=== PATIENT | female | born 1995 ===

== ENCOUNTER 2016-11-17 11:22 | Emergency (ER) | payer OTHER, MEDICAID ==
[~2016-11-17 11:22] MED LIST: COLACE-DPS100 MG PO; MOTRIN-DPS800 MG PO; NIPPLECREAM TP; TYLENOL #3 DPS1 TAB PO
--- NOTE | 2016-11-21 08:25 | ER ---
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 She was carrying a very heavy tray and felt her back pull and since then has become more sore. It has been going on for the last 3 days. On physical exam, she has pain in her lower lumbar spine, but she is able to get in and out of sitting position without any difficulty. DIAGNOSIS: Lower lumbar strain. I wrote a prescription for Flexeril. She was given Toradol in the ER. She should follow up with her primary in the next week if not feeling better. Please see my T-sheet. MELCHOR Morrow / Refugio Phan MD / susanl JOB #: [id number] CC: Refugio Phan MD, Attending Physician Dennis Ng MD, Family Physician
== END 2016-11-17 12:00 | disposition home or self-care (01) ==
LOC: ER 11:22
DX: S39.012A Strain of muscle, fascia and tendon of lower back, initial encounter (principal); X50.0XXA Overexertion from strenuous movement or load, initial encounter; Y92.69 Other specified industrial and construction area as the place of occurrence of the external cause

== ENCOUNTER 2016-12-14 22:12 | Emergency (ER) | payer MEDICAID ==
--- NOTE | 2016-12-31 16:41 | ER ---
ADMIT: 12/14/2016 RM/LOC: ER [facility] MR#: [id number] [address] [address] SAMM TANAREYMUNDO I [address] [place] [id number] Emergency Room Report SEX: F AGE: 21 : 1995 DATE: 12/14/2016 A 21-year-old, comes with complaints of 7 days worth of headache. She frequently gets headaches, but has not been able to get control of this one. See T-sheet for remainder of history and physical. The patient is given Toradol and diphenhydramine with resolution of her symptoms. She was instructed to follow up sometime this week with her primary doctor. DIAGNOSIS: Headache. Jose Francisco Azevedo MD/ wyatt JOB #: [id number] CC: Bernard Morse MD, Attending Physician Todd Barrett NP, Family Physician
== END 2016-12-15 00:10 | disposition home or self-care (01) ==
LOC: ER 22:12
DX: R51 Headache (principal); F32.9 Major depressive disorder, single episode, unspecified; Z79.899 Other long term (current) drug therapy